=== PATIENT | female | born 2000 | race Caucasian/White ===

== ENCOUNTER 2019-12-16 19:48 | Emergency (ER) | payer BC, MEDICAID, SELFPAY ==
[2019-12-16 19:58] VITALS: BP 162/98; PULSE 107; RESP 18; TEMP 37.1; O2SAT 98; BMI 32.3
--- NOTE | 2019-12-16 21:58 | W.ED.SKABFB ---
HPI - Skin/Abscess/Foreign Bdy General: Chief complaint: Skin/Abscess/Foreign Body Stated complaint: possible cyst Time Seen by Provider: 12/16/19 21:58 Source: patient Mode of arrival: ambulatory Limitations: no limitations History of Present Illness: HPI narrative: Patient comes in today with a swollen tender area to the left central buttock. Patient appears well. Patient appears in mild to moderate pain. Patient denies any high fever or nausea and vomiting. Review of Systems General: Reports: 10 or more systems reviewed and unremarkable except in HPI and below Skin/Breast: Reports: changes in skin color and other (left central buttock) PFSH ED PFSH: Social History Smoking and tobacco status: never smoked Physical Exam Const: COMMON NORMALS: no apparent distress and oriented x3 GENERAL APPEARANCE: cooperative HENMT: COMMON NORMALS: normocephalic, external ears normal, EAC's normal, TM's normal bilaterally and external nose normal HEAD & SCALP: normal to inspection and normocephalic FACE & SINUS: normal facial exam NOSE: external nose normal GENERAL EAR: hearing not grossly impaired EXTERNAL EAR: Yes external ears normal EXTERNAL AUDITORY CANAL: EAC's normal TYMPANIC MEMBRANE: TM's normal bilaterally MOUTH: oral and palatal mucosa normal THROAT: posterior oropharynx normal Eye: COMMON NORMALS: PERRL and EOMs intact bilaterally PUPIL: Yes PERRL Neck/C-Spine: COMMON NORMALS: full ROM and no lymphadenopathy Lymph: LYMPHATIC: no lymphedema noted Chest: COMMONS NORMALS: inspection of chest normal and palpation of chest normal Resp: COMMON NORMALS: normal respiratory effort and clear to auscultation bilaterally AUSCULTATION: clear to auscultation bilaterally Cardio: COMMON NORMALS: regular rate and regular rhythm RATE: regular rate RHYTHM: regular rhythm GI: COMMON NORMALS: normal to inspection, nondistended, normoactive bowel sounds and non-tender : COMMON NORMALS: Yes no CVA tenderness BLADDER/KIDNEY EXAM: Yes no CVA tenderness Back/Pelvis: COMMON NORMALS: no CVA tenderness and thoracic and lumbar spine normal to inspection Extremity: COMMON NORMALS: normal to inspection GENERAL: No edema Neuro: COMMON NORMALS: oriented x3, moves all extremities and no focal motor deficits Psych: COMMON NORMALS: mental status grossly normal and cooperative Skin: NARRATIVE SKIN EXAM: Patient has an area of redness approximately 8 cm to the left central buttock area. Is also noted that patient has some fluctuance and a sore to the central lateral area of the erythematous area. Course Vital Signs: Vital signs: Vital Signs Temperature 98.7 F 12/16/19 19:58 Pulse Rate 105 H 12/16/19 23:10 Respiratory Rate 17 12/16/19 23:10 Blood Pressure 149/83 12/16/19 23:10 Pulse Oximetry 95 12/16/19 23:10 MDM - Skin/Abscess/Foreign Bdy MDM Narrative: Medical decision making narrative: Patient presents with a abscess to the buttocks. On exam we note erythema approximately 8 cm in diameter with a central lesion on the left central buttock just at the area of the cleft. Vital signs are normal. Respirations are even. No signs of hemorrhoids were noted on examination. Differential diagnosis includes abscess, pilonidal cyst, cellulitis. Incision and drainage was performed with a large amount of purulent drainage discharge from the site. Culture was collected. Patient was given a dose of Bactrim and 1 hydrocodone tablet for pain. Patient tolerated procedure well. Reviewed postprocedure care and recommendations for further treatment of abscess and skin infection. Patient reports understanding agreed to plan. Discharge Plan Discharge Patient Disposition: Home, Self-Care Clinical Impression: Abscess of skin or subcutaneous tissue Qualifiers: Site of cutaneous abscess: buttock Qualified Code(s): L02.31 - Cutaneous abscess of buttock Condition: Stable Prescriptions: New Bactrim DS 800-160 mg tablet 1 tab PO BID 10 Days Qty: 20 RF: 0 hydrocodone-acetaminophen 5-325 mg tablet 1 tab PO Q6H PRN (Reason: pain (scale score 7-10)) Qty: 7 RF: 0 Referrals: Mariam Pearl MD [Primary Care Provider] - Discharge Diet: Usual diet Discharge Activity: Increase activity as tolerated Patient Instructions: Abscess Incision and Drainage (ED) Activity Restrictions/Additional Instructions: Keep area clean and dry Activity as tolerated Warm packs to the area Follow-up with primary care in three days Return to ER for high fever Discharge Date/Time: 12/16/19 23:10 Coding Level of Care Code ED Special Education Classroom Aide for Chg Fwd Exam Comprehensive
[2019-12-16] MEDS: sulfamethoxazole-trimeth DS 160-800 mg Tablet 1 TAB PO (22:06)
[2019-12-16] MEDS: HYDROcodone-acetaminophen 10-325 mg Tablet 1 TAB PO (22:06)
--- NOTE | 2019-12-16 22:55 | PC.NURSE ---
Wound to the patient left buttocks lanced and drained at this time.
[2019-12-16] MEDS: lidocaine 1% INJ 20 mL 10 ML INTRADERMA (22:59)
[2019-12-16 23:10] VITALS: BP 149/83; PULSE 105; RESP 17; O2SAT 95
== END 2019-12-16 23:10 | disposition home or self-care (01) ==
PROVIDERS: Emergency Provider Nurse Practitioner Family; Family Provider Family Medicine; PCP Family Medicine
DX: L02.31 Cutaneous abscess of buttock (principal)
CPT/HCPCS: 10060; 12345; 87070; 87205; 99282; 99283; J2001

== ENCOUNTER → 2020-05-02 13:51 | Outpatient (BNVA) | payer BC, SELFPAY | PROVIDERS: Family Provider Family Medicine; PCP Family Medicine; Visit Provider Nurse Practitioner Family | DX: N39.0 Urinary tract infection, site not specified (principal) | CPT/HCPCS: 81000 ==

== ENCOUNTER 2021-05-17 16:11 | Emergency (ER) | payer BC, SELFPAY ==
[2021-05-17 16:43] VITALS: BP 132/88; PULSE 85; RESP 16; TEMP 36.2; O2SAT 99; BMI 42.3
--- NOTE | 2021-05-17 17:24 | ED_ITS ---
HPI - General Adult General: Chief complaint: General Medical Stated complaint: nausea, decreased urination for 1 month Time Seen by Provider: 05/17/21 17:24 History of Present Illness: HPI narrative: 21-year-old female comes in with lower back pain, decreasing urine output, and nausea. Patient denies . Patient reports recent removal of Mirena. Patient denies any vaginal discharge. Patient has reported over the last month since removal of the Mirena she has had some spotting and irregularity in her menstrual cycle. Patient appears well. Patient appears in no acute distress. Onset (ago): week(s) Review of Systems General: Reports: 10 or more systems reviewed and unremarkable except in HPI and below : Reports: oliguria Musc: Reports: back pain PFSH ED PFSH: Medical History No pertinent past medical history Denies diabetes, asthma, hypertension, seizures, DVT/PE PCP: Dr. Simms Surgical History S/P section x 1 in 2018 Family History Grandfather Diabetes paternal Heart disease paternal Father Heart disease Thyroid condition Grandmother Heart disease paternal Thyroid condition paternal Denies family history of Colon cancer Ovarian cancer Hyperlipidemia Breast cancer Hypertension Uterine cancer Stroke Social History Smoking and tobacco status: never smoked Female Reproductive History: Date of last menstrual period: 04/07/21 Physical Exam Const: COMMON NORMALS: no acute distress and patient oriented x3 GENERAL APPEARANCE: cooperative HENMT: COMMON NORMALS: normocephalic and Normal external nose present HEAD & SCALP: normal to inspection and normocephalic NOSE: Normal external nose present MOUTH: Normal oral and palatal mucosa present THROAT: posterior oropharynx normal and other (sunil large tonsils, left larger than right) Eye: GENERAL EYE: appearance normal, both eyes and all related structures Neck/C-Spine: COMMON NORMALS: full ROM Lymph: LYMPHATIC: no lymphadenopathy noted Chest: COMMONS NORMALS: normal inspection of the chest Resp: COMMON NORMALS: normal respiratory effort EFFORT & INSPECTION: Yes able to speak in complete sentences Cardio: COMMON NORMALS: regular rate and regular rhythm RATE: regular rate RHYTHM: regular rhythm GI: COMMON NORMALS: Soft to palpation and non-tender PALPATION: Yes Soft to palpation : COMMON NORMALS: Yes no CVA tenderness BLADDER/KIDNEY EXAM: Yes no CVA tenderness Back/Pelvis: COMMON NORMALS: no CVA tenderness and thoracic and lumbar spine normal to inspection Extremity: COMMON NORMALS: normal to inspection Neuro: COMMON NORMALS: patient oriented x3 and moves all extremities Psych: COMMON NORMALS: mental status grossly normal and cooperative Skin: COMMON NORMALS: no rashes or lesions noted GENERAL SKIN EXAM: no rashes or lesions noted Course Vital Signs: Vital signs: Vital Signs Temperature 97.1 F L 05/17/21 16:43 Pulse Rate 85 05/17/21 16:43 Respiratory Rate 16 05/17/21 16:43 Blood Pressure 132/88 05/17/21 16:43 Pulse Oximetry 99 05/17/21 16:43 MDM - General Adult MDM Narrative: Medical decision making narrative: 21-year-old female comes in today with complaints of urinary difficulty, low back pain, and nausea. Patient appears well. Patient appears no acute distress. Respirations are even lungs are clear to auscultation. Skin is warm and dry. Differential diagnosis includes but not limited to cystitis, vaginitis, colitis. Laboratory values noted urine that was positive for both a large amount of white blood cells with some red blood cells but also some skin cells. I feel the patient with the symptoms that she is having does point more towards a cystitis and recommended treatment with antibiotics Macrobid 100 mg twice a day for 7 days. I encourage patient to monitor for worsening symptoms and to return to the ER as needed. Patient agreed to plan and need for follow-up. Lab Data: Labs: Lab Results 05/17/21 05/17/21 Range/Units 17:23 17:23 Urine Color Yellow (Yellow) Urine Appearance Cloudy (CLEAR) Urine pH 5 (5-7) Ur Specific Gravit y 1.020 (1.005-1.030) Urine Protein Neg (Negative) Urine Glucose (UA) Norm (Normal) Urine Ketones Negative (Negative) Urine Blood 3+ H (Negative) Urine Nitrate Negative (Negative) Urine Bilirubin 1+ H (Negative) Urine Urobilinogen 1 H (Negative) mg/dL Ur Leukocyte Valeria ase 2+ H (Negative) Urine RBC 15-25 H (0-2) /hpf Urine WBC 25-40 H (0-5) /hpf Ur Squamous Epith Cells 10-15 H (0-5) /hpf Amorphous Sediment Not Reportable Urine Bacteria 3+ H (NONE) /hpf Urine Mucus 1+ /hpf Urine HCG, Qual Negative (Negative) Discharge Plan Discharge Patient Disposition: Home Clinical Impression: UTI (urinary tract infection) due to Enterococcus Condition: Stable Prescriptions: New Macrobid 100 mg capsule 100 mg PO BID 7 Days Qty: 14 RF: 0 Discharge Orders: Discharge ED (Routine); Ordered 05/17/21 Ordered By: Stuart Tavarez Discharge Diet: Usual diet Discharge Activity: Increase activity as tolerated Patient Instructions: Urinary Tract Infection in Women (ED), Opioid Safety Activity Restrictions/Additional Instructions: Home and rest. Drink plenty of fluids. Take antibiotics as directed. Follow- up with primary care in 1 week. Return to the emergency department for new concerns. Coding Level of Care Code ED [place] Cutter Helper for Alice Fwd Exam Comprehensive
[2021-05-17 17:46] LABS: Add Urine Microscopic? YES; Bilirubin Urine 1+ (Negative); Blood Urine 3+ (Negative); Glucose Urine UA Norm (Normal); Ketones Urine Negative (Negative); Leukocyte Esterase Urine 2+ (Negative); Nitrate Urine Negative (Negative); Protein Urine Neg (Negative); Urine Appearance Cloudy (CLEAR); Urine Color Yellow (Yellow); Urobilinogen Urine 1 mg/dL (Negative); pH Urine 5 (5-7)
[2021-05-17 17:55] LABS: RBC Urine 15-25 /hpf (0-2); WBC Urine 25-40 /hpf (0-5)
[2021-05-17 17:56] LABS: Add Urine Culture? No; Bacteria Urine 3+ /hpf; Mucus Urine 1+ /hpf
[2021-05-17 18:23] VITALS: BP 120/74; PULSE 79; RESP 18; O2SAT 96
== END 2021-05-17 18:24 | disposition home or self-care (01) ==
PROVIDERS: Emergency Provider Nurse Practitioner Family
DX: N39.0 Urinary tract infection, site not specified (principal); B95.2 Enterococcus as the cause of diseases classified elsewhere
CPT/HCPCS: 81001; 81025; 99282

== ENCOUNTER → 2022-07-02 14:35 | Outpatient (BNVA) | payer OTHER, SELFPAY | PROVIDERS: Visit Provider Student in an Organized Health Care Education/Training Program | DX: X50.1XXA Overexertion from prolonged static or awkward postures, initial encounter (principal); S69.91XA Unspecified injury of right wrist, hand and finger(s), initial encounter | CPT/HCPCS: 73110 ==

== ENCOUNTER 2022-07-02 16:11 | Outpatient (CLI) | payer OTHER, SELFPAY | END 2022-07-02 16:12 | disposition home or self-care (01) | LOC: SPT 16:12 | PROVIDERS: Visit Provider Student in an Organized Health Care Education/Training Program | DX: Z46.89 Encounter for fitting and adjustment of other specified devices (principal); S69.91XS Unspecified injury of right wrist, hand and finger(s), sequela; X58.XXXS Exposure to other specified factors, sequela | CPT/HCPCS: 97760; L3809 ==

== ENCOUNTER 2022-09-18 14:07 | Outpatient (CLI) | payer OTHER, SELFPAY | END 2022-09-18 14:08 | disposition home or self-care (01) | LOC: SPT 14:08 | PROVIDERS: Visit Provider Student in an Organized Health Care Education/Training Program | DX: Z46.89 Encounter for fitting and adjustment of other specified devices (principal); M25.531 Pain in right wrist | CPT/HCPCS: 97760; L3908 ==

== ENCOUNTER → 2023-07-10 08:06 | Outpatient (BNVA) | payer BC, MEDICAID, SELFPAY | PROVIDERS: Visit Provider Nurse Practitioner Family | DX: J02.9 Acute pharyngitis, unspecified (principal) | CPT/HCPCS: 87071; 87880 ==

== ENCOUNTER → 2023-09-09 12:36 | Outpatient (BNVA) | payer BC, MEDICAID, SELFPAY | PROVIDERS: Visit Provider Nurse Practitioner | DX: R39.9 Unspecified symptoms and signs involving the genitourinary system (principal) | CPT/HCPCS: 81000 ==

== ENCOUNTER → 2023-09-18 09:10 | Outpatient (BNVA) | payer BC, MEDICAID, SELFPAY | PROVIDERS: Visit Provider Nurse Practitioner | DX: N92.6 Irregular menstruation, unspecified (principal); N83.209 Unspecified ovarian cyst, unspecified side | CPT/HCPCS: 80053; 80061; 83036; 84443 ==

== ENCOUNTER 2023-10-03 08:29 | Outpatient (CLI) | payer BC, MEDICAID, SELFPAY ==
--- NOTE | 2023-10-03 08:45 | USR_ITS ---
PROCEDURE INFORMATION: Exam: US Pelvis, Transvaginal Exam date and time: 10/03/2023 9:00 AM Age: 23 years old Clinical indication: Screening exam; Prior surgery; Surgery date: 6+ months; Surgery type: C section; Additional info: N83.209 - unspecified ovarian cyst, unspecified side LABS AND CLINICAL REPORTS: Last menstrual period start date: Unknown TECHNIQUE: Imaging protocol: Real-time transvaginal pelvic ultrasound with image documentation. Transvaginal imaging was used for better evaluation of the endometrium, adnexa, and/or cervix. COMPARISON: US OB >= 14 weeks fetus [id number] 09/03/2017 1:31 PM FINDINGS: Uterus: Uterus is anteverted and unremarkable in overall size, contour measuring 8.0 x 5.3 x 3.9 cm. No uterine masses are textural changes within the myometrium. Endometrial lining is not thickened measuring 5 mm. Cervix: Cervix is unremarkable. Right ovary/adnexa: Right ovary mildly enlarged measuring 3.7 x 3.1 x 3.8 cm for ovarian volume of 23.7 cc. Multiple tiny follicles noted. Normal Doppler flow. No adnexal mass. Left ovary/adnexa: Left ovary is within upper limits in size measuring 3.0 x 2.7 x 3.5 cm for ovarian volume of 15.4 cc. Multiple small follicles present. Normal Doppler flow. No adnexal mass. Intraperitoneal space: No significant free fluid seen in the cul-de-sac. US/US transvaginal [id number] IMPRESSION: Multiple small follicles present in both ovaries which are within upper limits of normal in size. Please correlate clinically for polycystic ovarian syndrome.
== END 2023-10-03 08:30 | disposition home or self-care (01) ==
LOC: RAD 08:30
PROVIDERS: PCP Nurse Practitioner; Visit Provider Nurse Practitioner
DX: N83.209 Unspecified ovarian cyst, unspecified side (principal)
CPT/HCPCS: 76830

== ENCOUNTER → 2023-10-16 09:32 | Outpatient (BNVA) | payer BC, MEDICAID, SELFPAY | PROVIDERS: PCP Nurse Practitioner; Visit Provider Nurse Practitioner | DX: R30.0 Dysuria (principal) | CPT/HCPCS: 81000; 87086 ==

== ENCOUNTER → 2023-11-07 12:03 | Outpatient (BNVA) | payer OTHER, BC, MEDICAID, SELFPAY | PROVIDERS: PCP Nurse Practitioner; Referring Provider Nurse Practitioner; Visit Provider Nurse Practitioner Women's Health | DX: N92.3 Ovulation bleeding (principal); L68.0 Hirsutism; Z12.4 Encounter for screening for malignant neoplasm of cervix; N92.6 Irregular menstruation, unspecified; Z11.3 Encounter for screening for infections with a predominantly sexual mode of transmission | CPT/HCPCS: 84146; 84402; 84439; 84443; 84481; 84702; 87491; 87591; 88175 ==

== ENCOUNTER → 2023-11-29 10:47 | Outpatient (BNVA) | payer OTHER, BC, MEDICAID, SELFPAY | PROVIDERS: PCP Nurse Practitioner; Visit Provider Nurse Practitioner Women's Health | DX: R35.0 Frequency of micturition (principal); N89.8 Other specified noninflammatory disorders of vagina; N92.6 Irregular menstruation, unspecified; Z32.00 Encounter for pregnancy test, result unknown | CPT/HCPCS: 81025; 84702; 87086; 87491; 87591 ==

== ENCOUNTER → 2023-12-03 08:30 | Outpatient (BNVA) | payer OTHER, BC, SELFPAY | PROVIDERS: PCP Nurse Practitioner; Visit Provider Nurse Practitioner Women's Health | DX: Z32.00 Encounter for pregnancy test, result unknown (principal); N92.6 Irregular menstruation, unspecified | CPT/HCPCS: 81025; 84702 ==

== ENCOUNTER → 2023-12-25 08:49 | Outpatient (BNVA) | payer OTHER, BC, SELFPAY | PROVIDERS: PCP Nurse Practitioner; Visit Provider Nurse Practitioner Women's Health | DX: O26.891 Other specified pregnancy related conditions, first trimester (principal); Z3A.10 10 weeks gestation of pregnancy | CPT/HCPCS: 76801 ==

== ENCOUNTER → 2024-01-03 07:38 | Outpatient (BNVA) | payer OTHER, BC, SELFPAY | PROVIDERS: PCP Nurse Practitioner; Visit Provider Nurse Practitioner Women's Health | DX: Z34.90 Encounter for supervision of normal pregnancy, unspecified, unspecified trimester (principal) | CPT/HCPCS: 80307; 84315; 85025; 86592; 86762; 86803; 86850; 86900; 87086; 87340; 87806 ==

== ENCOUNTER → 2024-01-24 08:03 | Outpatient (BNVA) | payer OTHER, BC, SELFPAY | PROVIDERS: PCP Nurse Practitioner; Visit Provider Obstetrics & Gynecology | DX: O09.899 Supervision of other high risk pregnancies, unspecified trimester (principal); Z34.90 Encounter for supervision of normal pregnancy, unspecified, unspecified trimester | CPT/HCPCS: 80307; 82950; 84315; 85025; 86592; 86762; 86803; 86850; 86900; 87086; 87340; 87491; 87591; 87806 ==

== ENCOUNTER → 2024-03-18 09:31 | Outpatient (BNVA) | payer OTHER, BC, SELFPAY | PROVIDERS: PCP Nurse Practitioner; Visit Provider Obstetrics & Gynecology | DX: O09.899 Supervision of other high risk pregnancies, unspecified trimester (principal) | CPT/HCPCS: 76805 ==

== ENCOUNTER → 2024-03-27 07:48 | Outpatient (BNVA) | payer OTHER, BC, SELFPAY | PROVIDERS: PCP Nurse Practitioner; Visit Provider Obstetrics & Gynecology | DX: O09.899 Supervision of other high risk pregnancies, unspecified trimester (principal); R80.9 Proteinuria, unspecified | CPT/HCPCS: 84315; 87086 ==

== ENCOUNTER → 2024-04-24 08:00 | Outpatient (BNVA) | payer OTHER, BC, SELFPAY | PROVIDERS: PCP Nurse Practitioner; Visit Provider Obstetrics & Gynecology | DX: O09.899 Supervision of other high risk pregnancies, unspecified trimester (principal) | CPT/HCPCS: 82950; 84315 ==

== ENCOUNTER → 2024-05-07 08:10 | Outpatient (BNVA) | payer OTHER, BC, SELFPAY | PROVIDERS: PCP Nurse Practitioner; Visit Provider Obstetrics & Gynecology | DX: O09.899 Supervision of other high risk pregnancies, unspecified trimester (principal) | CPT/HCPCS: 84315; 85025 ==

== ENCOUNTER → 2024-06-05 08:40 | Outpatient (BNVA) | payer OTHER, BC, SELFPAY | PROVIDERS: PCP Nurse Practitioner; Visit Provider Obstetrics & Gynecology | DX: O09.899 Supervision of other high risk pregnancies, unspecified trimester (principal) | CPT/HCPCS: 81000 ==

== ENCOUNTER → 2024-06-19 07:46 | Outpatient (BNVA) | payer OTHER, BC, SELFPAY | PROVIDERS: PCP Nurse Practitioner; Visit Provider Nurse Practitioner Women's Health | DX: O09.899 Supervision of other high risk pregnancies, unspecified trimester (principal) | CPT/HCPCS: 84315 ==

== ENCOUNTER 2024-06-30 06:00 | Outpatient (CLI) | payer OTHER, BC, MEDICAID, SELFPAY | END 2024-06-30 06:01 | disposition home or self-care (01) | LOC: OPOB 07-13 11:15 | PROVIDERS: PCP Nurse Practitioner; Visit Provider Obstetrics & Gynecology | DX: Z01.818 Encounter for other preprocedural examination (principal) | CPT/HCPCS: 84315; 87081 ==

== ENCOUNTER 2024-07-18 20:25 | Outpatient (CLI) | payer BC, SELFPAY ==
[2024-07-18] VITALS (9 sets, daily range): BP systolic 96–134; BP diastolic 57–92; PULSE 65–91; BMI 39.7
[2024-07-18 20:45] LABS: Nitrazine Paper, PH Inconclusive
[2024-07-18 20:48] LABS: Bilirubin Urine Negative (Negative); Blood Urine 3+ (Negative); Glucose Urine UA Negative (Normal); Ketones Urine Negative (Negative); Leukocyte Esterase Urine 1+ (Negative); Nitrate Urine Negative (Negative); Protein Urine Trace (Negative); Specific Gravity, Urine 1.019 (1.005-1.030); pH Urine 6.5 (5-7)
[2024-07-18 20:53] LABS: Actim Prom Negative; Bacteria Urine 1+ /hpf; Hyaline Casts Urine 0-4 /lpf; RBC Urine >100 /hpf (0-2)
[2024-07-18 21:06] LABS: Urine Appearance Slightly Cloudy (CLEAR); Urine Color Yellow (Yellow)
[2024-07-18 21:07] LABS: Add Urine Culture? No
[2024-07-18] MEDS: nitrofurantoin SR (BID) 100 mg Capsule PO (22:27)
== END 2024-07-18 22:48 | disposition home or self-care (01) ==
LOC: OPOB 20:26 → OBGYN 20:26
PROVIDERS: PCP Nurse Practitioner; Visit Provider Obstetrics & Gynecology
DX: O26.899 Other specified pregnancy related conditions, unspecified trimester (principal); Z3A.00 Weeks of gestation of pregnancy not specified; R10.9 Unspecified abdominal pain; N89.8 Other specified noninflammatory disorders of vagina
CPT/HCPCS: 59025; 81001; 83986; 84112; 99211

== ENCOUNTER 2024-07-22 05:25 | Outpatient (CLI) | payer BC, SELFPAY | END 2024-07-22 05:33 | disposition home or self-care (01) | LOC: OPOB 05:26 → OBGYN 05:27 | PROVIDERS: PCP Nurse Practitioner; Visit Provider Obstetrics & Gynecology | DX: Z53.9 Procedure and treatment not carried out, unspecified reason (principal) | CPT/HCPCS: J1885; J2274; J2371; J2405; J3010 ==

== ENCOUNTER 2024-07-22 05:45 | Inpatient (IN) | payer BC, MEDICAID, SELFPAY ==
[2024-07-22] VITALS (70 sets, daily range): BP systolic 92–169; BP diastolic 53–99; PULSE 52–200; RESP 16–17; TEMP 36.2–36.9; O2SAT 78–100; BMI 39.3
[2024-07-22] MEDS: lactated ringers 1,000 ML 999 ML IV (06:00)
[2024-07-22 06:02] LABS: Basophils % 0.1 %; Eosinophils % 0.4 %; Hematocrit 37.6 % (36-47); Lymphocytes # 1.2 10^3/uL (0.8-4.8); Lymphocytes % 15.2 %; Mean Corpuscular Hemoglobin 28.4 pg (27-33); Mean Corpuscular Volume 86.2 fl (85-98); Mean Platelet Volume 12.3 fL (7.4-10.4); Monocytes # 0.8 10^3/uL (0.2-0.9); Monocytes % 10.5 %; Neutrophils # 5.74 10^3/uL (1.8-7.7); Neutrophils % 73.2 %; Nucleated Red Blood Cells % 0 %; Platelet Count 174 10^3/cmm (157-399); Red Blood Count 4.36 10^6/uL (3.85-5.65); Red Cell Distribution Width 13.3 % (12.1-15.1); White Blood Count 7.84 10^3/uL (3.29-11.43)
[2024-07-22] MEDS: metoclopramide 5 mg/mL SDV 2 mL 10 MG IVP (06:50)
[2024-07-22] MEDS: citric acid-sodium citrate 30 mL UDC PO (06:50)
[2024-07-22] MEDS: famotidine 20 mg/2 mL INJ IVP (06:51)
[2024-07-22] MEDS: ceFAZolin 2,000 mg SDV 2000 MG IVP (07:00)
[2024-07-22] MEDS: BUPIVACAINE LIPOSOME/PF 266 MG, BUPivacaine 0.25% 30 ML in sodium chloride 0.9% 50 ML 20 MG INFILTRATI (08:27)
--- NOTE | 2024-07-22 08:44 | P.OP_ITS ---
Operative Report Date of procedure: July 22, 2024 Pre-op diagnosis: Term Previous delivery Desire permanent sterilization Post-op diagnosis: same Procedure done: Repeat low-transverse delivery Bilateral salpingectomy Lysis of adhesion Surgeon: Gerardo Mcfarlane MD Estimated blood loss (mL): 800 Procedure: After assuring informed consent, the patient was taken to the operating room and anesthesia was initiated. She was placed in the dorsal supine position with a left lateral tilt. The abdomen was prepped and draped in the usual sterile manner. A time-out procedure was performed. Preop antibiotics was administered. A Pfannenstiel skin incision was made with the scalpel and carried through to the underlying layer of fascia with the Bovie. The fascia was nicked in the midline and the incision extended laterally with the Spears scissors. The superio r aspect of the fascial incision was then grasped with Kymberly clamps and elevated and the underlying rectus muscle dissected off bluntly and sharp with spears scissors dense adhesions. Attention was then turned to the inferior aspect of the incision which, in similar fashion, was grasped and tented up with Kymberly clamps and the rectus muscle dissected bluntly. The rectus muscles were then in the midline and the peritoneum identified, tented up and entered sharply with Metzenbaum scissors. The peritoneal incision was then extended superiorly and inferiorly with good visualization of the bladder. The Arnaud O retractor was then inserted and the vesicouterine peritoneum identified, grasped with pickups and entered sharply with Metzenbaum scissors. This incision was then extended laterally and the bladder flap created digitally. The uterus incised in a low transverse fashion with the scalpel. The uterine incision was then extended with the bandage scissors. The infant was then delivered in the cephalic presentation atraumatically at 0744 hours, Apgars 910 with a birthweight of 3060 g. Nuchal cord x 1 was noted. The nose and the mouth were suctioned with bulb and the cord clamped and cut. The cord was normal and had three vessels. Amniotic fluid was clear. The placenta was then removed manually and the uterus exteriorized and cleared of all clots and debris. The uterine incision was repaired with 0 Vicryl in a running-locked fashion. A second layer of the same suture was used to obtain excellent hemostasis. The gutters were cleared of all clots. The left fallopian tube was identified and grasped with a [place] clamp. The tube was then followed out to the fimbria. Then the fallopian tube was grasped with a Ebenezer clamp and seriously clamped sealed and cut with the finding LigaSure device. The specimen was sent to pathology. Excellent hemostasis was noted. The same procedure was performed on the opposite fallopian tube. The uterus was then returned to the abdomen. The rectus muscles were approximated with 3-0 chromic gut. The fascia was reapproximated with 0 Vicryl in an interrupted running fashion. Exparel was infiltrated in the adipose layer for pain management. The skin was closed with Insorb?s subcuticular absorbable tamika. The patient tolerated the procedure well. The sponge, lap and needle counts were correct times three.
--- NOTE | 2024-07-22 08:44 | W.PM.OPSUD ---
Surgery/Procedure H&P Update DATE OF PROCEDURE: July 22, 2024 DATE H&P PERFORMED: 07/17/24 H&P UPDATE INFORMATION: I have reviewed H&P completed within last 30 days, I have examined patient prior to procedure and No changes to prior documentation PLANNED PROCEDURE: Operation Date: 07/22/24 07:00 Proposed Procedures p Section Repeat With Tubal(Bilateral) - Gerardo Mcfarlane MD
[2024-07-22] MEDS: dextrose 5%-lactated ringers 1,000 ML 125 ML IV ×2 (09:44→18:18)
[2024-07-22] MEDS: PRENATAL VIT NO.130/IRON/FOLIC 1 EACH TABLET PO (09:44)
[2024-07-22] MEDS: sertraline 50 mg Tablet PO (09:45)
[2024-07-22] MEDS: docusate sodium 100 mg Capsule PO ×2 (09:45→18:19)
[2024-07-22] MEDS: ketorolac 30 mg/mL INJ IVP ×2 (14:32→20:40)
[2024-07-22] MEDS: lanolin oint 7 gm 1 APPLIC TOPICAL (14:33)
[2024-07-22] MEDS: ferrous sulfate EC 325 mg Tablet PO (18:19)
[2024-07-22 19:55] LABS: Hematocrit 35.1 % (36-47); Mean Corpuscular Hemoglobin 28.6 pg (27-33); Mean Corpuscular Volume 86.5 fl (85-98); Mean Platelet Volume 12.4 fL (7.4-10.4); Platelet Count 179 10^3/cmm (157-399); Red Blood Count 4.06 10^6/uL (3.85-5.65); Red Cell Distribution Width 13.4 % (12.1-15.1); White Blood Count 11.86 10^3/uL (3.29-11.43)
[2024-07-23 04:00] VITALS: TEMP 36.8
[2024-07-23] MEDS: HYDROcodone-acetaminophen 5-325 mg Tablet PO (04:54)
[2024-07-23 04:56] VITALS: BP 120/71; PULSE 78
--- NOTE | 2024-07-23 08:41 | P.PN_ITS ---
Subjective 2 Subjective: 24-year-old female status post repeat lo w-transverse delivery postoperative day 1. Refers doing fine. Vitals/I&O/Wt Last Vital Signs Temp 97.9 F 07/24/24 16:30 Pulse 75 07/24/24 16:30 Resp 16 07/24/24 16:30 BP 133/82 07/24/24 16:30 Pulse Ox 98 07/22/24 11:26 O2 Del Method Room Air 07/22/24 05:23 Physical Exam 2 Narrative: GA; alert and oriented x 3 HEENT: normal Breasts: engorged Nipples - skin intact Lungs; clear to auscultation Heart: regular rhythm, no murmurs. Abd: Appropriately tender. BS+. Uterine fundus below umbilicus. No Fundal Tenderness, minimal tenderness, incision clean and dry, no redness, pain or edema Perineum: normal lochia. Extremities: no edema, no cyanosis, no tenderness. Urinary Catheter Management: Valenzuela Latex: Cath Placed During This Visit: yes, but has since been removed by the nurse Reason for Continuing Indwelling Catheter: Decision to DC Catheter Urinary Catheter Date of Insertion: 07/22/24 Urinary Catheter Time of Insertion: 07:20 Date Urinary Catheter Removed: 07/22/24 Time Urinary Catheter Discontinued: 22:30 Data 07/22/24 19:45 A&P Assessment and plan (1) delivery, delivered, current hospitalization: Mrs. Leonard 24-year-old female G2,P2 status post repeat low-transverse delivery, bilateral salpingectomy and lysis of adhesion postoperative day 1. Refers pain well under control. Tolerating diet well. Ambulating without difficulty. Glucose under control. Plan Continue /postop observation. Attestations 2 Medical Necessity Statement*: In my professional opinion per admitting diagnosis. Coding Level of Care Code Acute Code for Chg Fwd Diagnoses delivery, delivered, current hospitalization O82
[2024-07-23] MEDS: docusate sodium 100 mg Capsule PO ×2 (10:15→21:10)
[2024-07-23] MEDS: PRENATAL VIT NO.130/IRON/FOLIC 1 EACH TABLET PO (10:15)
[2024-07-23] MEDS: ferrous sulfate EC 325 mg Tablet PO (10:15)
[2024-07-23] MEDS: sertraline 50 mg Tablet PO (10:15)
[2024-07-23] MEDS: ibuprofen 800 mg tablet PO ×3 (10:15→21:10)
[2024-07-23 10:19] VITALS: BP 149/67; PULSE 78
[2024-07-23 16:20] VITALS: TEMP 36.2
[2024-07-23 16:21] VITALS: BP 134/78; PULSE 76
[2024-07-23 21:13] VITALS: BP 144/72; PULSE 74; TEMP 35.9
[2024-07-24 03:14] VITALS: BP 126/72; PULSE 85
[2024-07-24 03:15] VITALS: TEMP 35.9
[2024-07-24] MEDS: PRENATAL VIT NO.130/IRON/FOLIC 1 EACH TABLET PO (09:11)
[2024-07-24] MEDS: docusate sodium 100 mg Capsule PO (09:11)
[2024-07-24] MEDS: sertraline 50 mg Tablet PO (09:11)
[2024-07-24] MEDS: ibuprofen 800 mg tablet PO ×2 (09:11→16:25)
[2024-07-24 09:14] VITALS: BP 141/83; PULSE 96
[2024-07-24 09:15] VITALS: TEMP 37
--- NOTE | 2024-07-24 12:50 | P.DS_ITS ---
Discharge Providers PRINTS AND DRAWINGS CURATOR Date of Admission: 07/22/24 05:45 Date of Discharge: 07/24/24 Attending Provider at Admission: Gerardo Mcfarlane MD Attending Provider at Discharge: Lan Hawthorne MD Consults: none Primary PRINTS AND DRAWINGS CURATOR: Lan Hawthorne MD Primary Care Provider: Nafisa Fall APN Diagnoses at Discharge Discharge Diagnosis (1) delivery, delivered, current hospitalization: Details from hospital stay: 24 y.o. [facility] July 29, 2024 at 39 weeks there were no complications h/o previous patient desires repeat for delivery and also permanent sterilization patient underwent repeat with bilateral salpingectomy without any complications patient did well postoperatively and was discharged to home on the second postoperative day Status: Acute Reason for Visit Reason for Visit: Brief History: 24 y.o. [facility] July 29, 2024 at 39 weeks there were no complications h/o previous patient desires repeat for delivery and also permanent sterilization Hospital Course Hospital Course 24 y.o. [facility] July 29, 2024 at 39 weeks there were no complications h/o previous patient desires repeat for delivery and also permanent sterilization patient underwent repeat with bilateral salpingectomy without any complications patient did well postoperatively and was discharged to home on the second postoperative day Information Peripartum Data: Delivery Method: Laceration description: None Episiotomy description: None complications: none Physical Exam Narrative: General comfortable VS normal Lungs: clear Cor: RRR Abd: soft, nontender. Wound clean and dry Ext: normal Urinary Catheter Management: Valenzuela Latex: Cath Placed During This Visit: yes, but has since been removed by the nurse Reason for Continuing Indwelling Catheter: Decision to DC Catheter Urinary Catheter Date of Insertion: 07/22/24 Urinary Catheter Time of Insertion: 07:20 Date Urinary Catheter Removed: 07/22/24 Time Urinary Catheter Discontinued: 22:30 History History History 2 Term 2 0 Miscarriages/Ectopic 0 Living Children 2 Discharge Data Studies Completed and Pending Completed Studies During Hospitalization Category Date Time Status Pathology: Surgical [PTH] Routine Pth 07/22/24 08:14 Completed Laboratory Results WBC 11.86 10^3/uL (3.29-11.43) H 07/22/24 19:45 RBC 4.06 10^6/uL (3.85-5.65) 07/22/24 19:45 Hgb 11.60 g/dL (11.27-16.99) 07/22/24 19:45 Hct 35.1 % (36-47) L 07/22/24 19:45 MCV 86.5 fl (85-98) 07/22/24 19:45 MCH 28.6 pg (27-33) 07/22/24 19:45 MCHC 33.0 g/dL (30-55) 07/22/24 19:45 RDW 13.4 % (12.1-15.1) 07/22/24 19:45 Plt Count 179 10^3/cmm (157-399) 07/22/24 19:45 MPV 12.4 fL (7.4-10.4) H 07/22/24 19:45 Neut % (Auto) 73.2 % 07/22/24 05:55 Lymph % (Auto) 15.2 % 07/22/24 05:55 Sutton % (Auto) 10.5 % 07/22/24 05:55 Eos % (Auto) 0.4 % 07/22/24 05:55 Baso % (Auto) 0.1 % 07/22/24 05:55 Neut # (Auto) 5.74 10^3/uL (1.8-7.7) 07/22/24 05:55 Lymph # (Auto) 1.2 10^3/uL (0.8-4.8) 07/22/24 05:55 Sutton # (Auto) 0.8 10^3/uL (0.2-0.9) 07/22/24 05:55 Eos # (Auto) 0.0 10^3/uL (0.0-0.8) 07/22/24 05:55 Baso # (Auto) 0.0 10^3/uL (0.0-0.1) 07/22/24 05:55 Nucleated RBC % (auto) 0 % 07/22/24 05:55 Nucleated RBCs # 0.0 /100WBC 07/22/24 05:55 Blood Type A Positive 07/22/24 05:55 Rho(D) Type Rh positive 07/22/24 05:55 Antibody Screen Negative 07/22/24 05:55 Procedures Performed repeat low-transverse bilateral salpingectomy Vitals Last Vital Signs Temp 97.9 F 07/24/24 16:30 Pulse 75 07/24/24 16:30 Resp 16 07/24/24 16:30 BP 133/82 07/24/24 16:30 Pulse Ox 98 07/22/24 11:26 O2 Del Method Room Air 07/22/24 05:23 Results Labs OB ([facility]): Blood Type A Positive 07/22/24 Antibody Screen Negative 07/22/24 Hct 35.1 % (36-47) L 07/22/24 Hgb 11.60 g/dL (11.27-16.99) 07/22/24 Rho(D) Type Rh positive 07/22/24 Plt Count 179 10^3/cmm (157-399) 07/22/24 Hep Bs Antigen Non-reactive (Nonreactive) 01/24/24 Hepatitis C Antibody Non-reactive (Nonreactive) 01/24/24 Rubella IgG Antibody 123.9 IU/mL (0.0-10.0) H 01/24/24 RPR Nonreactive (Nonreactive) 01/24/24 HIV 1&2 Ab & HIV 1 Ag Non-reactive (Non-Reactiv) 01/24/24 TSH 1.12 uIU/mL (0.27-4.20) 10/21/24 Free T4 1.33 ng/dL (0.82-1.77) 11/07/23 C.trachomatis RNA (TMA) Not detected (NOT DETECTED) N.gonorrhoeae RNA (TMA) Not detected (NOT DETECTED) T. vaginalis Amp RNA Not detected (NOT DETECTED) 01/24/24 Chlamydia/GC Comment See note 01/24/24 Glucose 1 Hr 50 gm 133 mg/dL (85-140) 04/24/24 Hemoglobin A1c 4.9 % (4.0-6.0) 10/21/24 Ser , Semi-Qnt 02287.00 mIU/mL 12/03/23 HCG, Qual Positive (Negative) H 11/29/23 Urine Opiates Screen Negative ng/mL (Negative) 01/24/24 Ur Barbiturates Screen Negative ng/mL (Negative) 01/24/24 Ur Phencyclidine Scrn Negative ng/mL (Negative) 01/24/24 Ur Amphetamines Screen Negative ng/mL (Negative) 01/24/24 U Benzodiazepines Scrn Negative ng/mL (Negative) 01/24/24 Urine Cocaine Screen Negative ng/mL (Negative) 01/24/24 U Marijuana (THC) Screen Negative ng/mL (Negative) 01/24/24 Micro Urine Specimen 03/27/24 Pap Smear Interpret See note 11/07/23 Free Testosterone 9.7 pg/mL (0.2-5.0) H 11/07/23 Prolactin 18.74 ng/mL (4.8-23.3) 11/07/23 Discharge Plan Discharge Patient Disposition: Home Condition: Stable Prescriptions: Continued Flintstones Complete (iron) Tablet,Chewable 2 tab PO DAILY Rx Instructions: administer with a meal (DME) breast pump Device See Rx Instructions .ROUTE .MEDSUPPLY Qty: 1 0RF Rx Instructions: As directed No Action sertraline 50 mg tablet 50 mg PO DAILY Qty: 30 3RF Discharge Orders: Discharge Order (Routine); Ordered 07/24/24 Ordered By: Lan Hawthorne Referrals: Gerardo Mcfarlane MD [Physician] - 09/07/24 1:15 pm Guadalupe Santos APN, WHNP [Nurse Practitioner] - 08/05/24 1:45 pm Discharge Diet: Usual diet Discharge Activity: Increase activity as tolerated Patient Instructions: Depression (DC), Opioid Safety (DC), Preeclampsia and Eclampsia After Delivery (GEN), Hemorrhage (DC), OB C, OB Discharge Report, OB Food/Drug Interaction Guide, Opioid Safety, OB Home Care, Abnormal Bleeding Discharge Attestations PRINTS AND DRAWINGS CURATOR Time Spent in Discharge Care*: less than 30 min Coding Level of Care Code Acute Code for Chg Fwd Diagnoses delivery, delivered, current hospitalization O82 Time Spent (min) 20
[2024-07-24 16:26] VITALS: BP 133/82; PULSE 75
[2024-07-24 16:30] VITALS: BP 133/82; PULSE 75; RESP 16; TEMP 36.6
== END 2024-07-24 16:45 | disposition home or self-care (01) | DRG 785 ==
PROVIDERS: Admitting Provider Obstetrics & Gynecology; PCP Nurse Practitioner; Visit Provider Obstetrics & Gynecology
PROC: 10D00Z1 Extraction of Products of Conception, Low, Open Approach (ICD-10-PCS; CPT 59514; principal; 2024-07-22 07:00)
DX: O34.211 Maternal care for low transverse scar from previous cesarean delivery (principal); O69.81X0 Labor and delivery complicated by cord around neck, without compression, not applicable or unspecified; Z3A.39 39 weeks gestation of pregnancy; Z37.0 Single live birth; Z30.2 Encounter for sterilization; N85.8 Other specified noninflammatory disorders of uterus
CPT/HCPCS: 36415; 51702; 59025; 59409; 85025; 85027; 86850; 86900; 88302; 96374; 96376; 99211; C9290; J0690; J1885; J2274; J2371; J2405; J2765; J3010; J3490; J7030; J7120; J7121

== ENCOUNTER → 2024-10-21 08:22 | Outpatient (BNVA) | payer OTHER, BC, MEDICAID, SELFPAY | PROVIDERS: PCP Nurse Practitioner; Referring Provider Nurse Practitioner; Visit Provider Nurse Practitioner | DX: R73.03 Prediabetes (principal); F41.8 Other specified anxiety disorders; R42 Dizziness and giddiness | CPT/HCPCS: 80053; 83036; 84443 ==

== ENCOUNTER → 2025-05-28 09:18 | Outpatient (BNVA) | payer BC, SELFPAY | PROVIDERS: PCP Nurse Practitioner; Referring Provider Family Medicine; Visit Provider Family Medicine | DX: A09 Infectious gastroenteritis and colitis, unspecified (principal) | CPT/HCPCS: 87045; 87427; 87449; 87493 ==

== ENCOUNTER → 2025-08-05 14:01 | Outpatient (BNVA) | payer BC, MEDICAID, SELFPAY | PROVIDERS: PCP Nurse Practitioner; Visit Provider Nurse Practitioner | DX: J02.9 Acute pharyngitis, unspecified (principal) | CPT/HCPCS: 87880 ==